=== PATIENT | female | born 1980 | race Caucasian/White ===

== ENCOUNTER 2022-04-21 10:56 | Emergency (ER) | payer BC ==
[2022-04-21 11:16] VITALS: BP 105/73; PULSE 113; RESP 17; TEMP 100.3; BMI 21.1
[2022-04-21] MEDS ORDERED: ACETAMINOPHEN 500 MG TABLET (FP) PO ONE (12:19)
[2022-04-21] MEDS ORDERED: IBUPROFEN 400 MG TABLET (FP) PO ONE (12:19)
== END 2022-04-21 12:55 | disposition home or self-care (01) ==
LOC: JER 10:56
DX: J09.X2 Influenza due to identified novel influenza A virus with other respiratory manifestations (principal); R50.9 Fever, unspecified; R05.1 Acute cough; R00.0 Tachycardia, unspecified
CPT/HCPCS: 0241U-QW; 99283-25